=== PATIENT | female | born 1965 | race Two or more races ===

== ENCOUNTER 2017-10-27 19:37 | Emergency (ER) | payer OTHER ==
[~2017-10-27] VITALS: Ht 154.9 cm; Wt 56.7 kg
[2017-10-27] MEDS ORDERED: EFFEXOR XR75 MG PO (19:53)
== END 2017-10-27 22:47 | disposition home or self-care (01) ==
LOC: ER 19:37
DX: S00.83XA Contusion of other part of head, initial encounter (principal); W10.9XXA Fall (on) (from) unspecified stairs and steps, initial encounter; Y93.89 Activity, other specified; Y92.89 Other specified places as the place of occurrence of the external cause; Y99.8 Other external cause status

== ENCOUNTER 2021-03-28 10:15 | Outpatient (CLI) | payer OTHER ==
[~2021-03-28 10:15] MED LIST: EFFEXOR XR75 MG PO
== END 2021-03-28 10:30 | disposition home or self-care (01) ==
LOC: PPH VACUNA 10:15
PROVIDERS: ATTEND Emergency Medicine Pediatric Emergency Medicine
DX: Z23 Encounter for immunization (principal)